=== PATIENT | male | born 1960 | race Caucasian/White ===

== ENCOUNTER 2023-12-07 08:39 | Outpatient (RCR) | payer OTHER, SELFPAY ==
[2023-11-09 09:30] LABS: % Basophils 0.4 % (0-2); % Eosinophils 0.7 % (0-6); % Immature Granulocytes 2.3 % (0-0.5); % Lymphocytes 16.9 % (20.5-51.1); % Monocytes 8.6 % (1.7-9.3); % Neutrophils 71.1 % (42.2-75.2); Absolute Eosinophils 0.1 10^3/uL (0-0.7); Absolute Immature Granulocytes 0.2 10^3/uL (0-0.05); Absolute Lymphocytes 1.7 10^3/uL (1.2-3.4); Absolute Monocytes 0.9 10^3/uL (0.1-0.6); Absolute Neutrophils 7.3 10^3/uL (1.4-6.5); Hematocrit 38.5 % (39.0-52.0); Hemoglobin 13.2 g/dL (13.0-18.0); Mean Corp Hgb Conc. 34.3 g/dL (33.0-37.0); Mean Corpuscular Hgb 30.1 pg (27.0-31.0); Mean Corpuscular Volume 87.7 fL (80.0-94.0); Red Blood Cell Count 4.39 10^6/uL (4.70-6.10); Red Cell Dist. Width 15.7 % (11.5-14.5); White Blood Cell Count 10.3 10^3/uL (4.8-10.8)
[2023-11-09 10:15] LABS: Nucleated Red Blood Cells % 0.9 % (-); Platelet Count 4 10^3/uL (130-400)
[2023-11-09 10:42] LABS: ALT (SGPT) 28 U/L (0-50); AST (SGOT) 36 U/L (17-59); Albumin 4.3 g/dl (3.5-5.0); Alkaline Phosphatase 51 U/L (38-126); Blood Urea Nitrogen 14 mg/dl (9-20); Calcium 8.7 mg/dl (8.4-10.2); Carbon Dioxide 30 mmol/L (22-30); Chloride 97 mmol/L (98-107); Glucose 177 mg/dl (70-99); Potassium 4.4 mmol/L (3.5-5.1); Sodium 137 mmol/L (135-145); Total Bilirubin 0.8 mg/dl (0.2-1.3); Total Protein 6.7 g/dl (6.3-8.2); eGFR > 60.00
[2023-11-10 10:52] VITALS: BP 145/90
[2023-11-10 11:09] VITALS: BP 143/86
[2023-11-10 11:44] VITALS: BP 134/82
[2023-11-15 13:51] VITALS: BP 134/91
[2023-11-15 14:14] VITALS: BP 141/87
[2023-11-15 14:41] VITALS: BP 156/86
[2023-11-19 09:15] VITALS: BP 152/73
[2023-11-19 09:31] VITALS: BP 137/80
[2023-11-19 10:06] VITALS: BP 140/74
[2023-12-07 08:59] LABS: % Basophils 0.9 % (0-2); % Eosinophils 1.1 % (0-6); % Immature Granulocytes 0.2 % (0-0.5); % Lymphocytes 14.1 % (20.5-51.1); % Monocytes 12.7 % (1.7-9.3); Absolute Basophils 0.1 10^3/uL (0-0.2); Absolute Eosinophils 0.1 10^3/uL (0-0.7); Absolute Lymphocytes 0.9 10^3/uL (1.2-3.4); Absolute Monocytes 0.8 10^3/uL (0.1-0.6); Absolute Neutrophils 4.6 10^3/uL (1.4-6.5); Hematocrit 38.8 % (39.0-52.0); Hemoglobin 12.8 g/dL (13.0-18.0); Mean Corpuscular Hgb 29.9 pg (27.0-31.0); Mean Corpuscular Volume 90.7 fL (80.0-94.0); Mean Platelet Volume 8.4 fL (7.4-10.4); Platelet Count 627 10^3/uL (130-400); Red Blood Cell Count 4.28 10^6/uL (4.70-6.10); Red Cell Dist. Width 14.9 % (11.5-14.5); White Blood Cell Count 6.5 10^3/uL (4.8-10.8)
== END 2023-12-08 23:59 | disposition home or self-care (01) ==
LOC: OID 08:39
PROVIDERS: Registered Nurse; ATTENDING PHYSICIAN Internal Medicine Hematology & Oncology; FAMILY PHYSICIAN Family Medicine
DX: D69.3 Immune thrombocytopenic purpura (principal)
CPT/HCPCS: 36415; 36430; 80053; 85025; P9073

== ENCOUNTER 2024-12-05 14:07 | Outpatient (RCR) | payer OTHER, SELFPAY ==
[2024-11-14 14:42] VITALS: BP 166/94
[2024-11-14] MEDS: NPLATE 0.1846 MCG SC (14:56)
[2024-11-21 14:31] VITALS: BP 155/95
[2024-11-21 14:37] VITALS: BP 142/76
[2024-11-21] MEDS: NPLATE 0.3692 MCG SC (14:39)
[2024-11-27 14:32] VITALS: BP 156/90
[2024-11-27] MEDS: NPLATE 0.5538 MCG SC (14:58)
[2024-12-05 14:22] VITALS: BP 141/82
[2024-12-05] MEDS: NPLATE 0.5538 MCG SC (14:30)
== END 2024-12-07 14:34 | disposition home or self-care (01) ==
LOC: OID 14:07
PROVIDERS: ATTENDING PHYSICIAN Internal Medicine Hematology & Oncology; FAMILY PHYSICIAN Family Medicine
DX: D69.3 Immune thrombocytopenic purpura (principal)
CPT/HCPCS: J2802; 96372; J2796

== ENCOUNTER 2024-12-26 14:23 | Outpatient (RCR) | payer OTHER, SELFPAY ==
[2024-12-12 14:30] VITALS: BP 155/85
[2024-12-12] MEDS: NPLATE 0.7384 MCG SC (14:47)
[2024-12-19 14:31] VITALS: BP 147/95
[2024-12-19] MEDS: NPLATE 0.7384 MCG SC (14:42)
[2024-12-26 14:36] VITALS: BP 156/92
[2024-12-26] MEDS: NPLATE 0.7384 MCG SC (14:50)
== END 2025-01-05 23:59 | disposition home or self-care (01) ==
LOC: OID 14:23
PROVIDERS: ATTENDING PHYSICIAN Internal Medicine Hematology & Oncology; FAMILY PHYSICIAN Family Medicine
DX: D69.3 Immune thrombocytopenic purpura (principal)
CPT/HCPCS: J2802; 96372